=== PATIENT | female | born 1930 | race African-American/Black ===

== ENCOUNTER 2017-05-31 23:38 | Emergency (ER) | payer OTHER ==
[~2017-05-31] VITALS: Ht 160 cm; Wt 55.0 kg
[2017-05-31 23:40] VITALS: BP 132/72
== END 2017-06-01 00:26 | disposition left against medical advice (07) ==
LOC: ER 23:38
DX: Z53.21 Procedure and treatment not carried out due to patient leaving prior to being seen by health care provider (principal)